=== PATIENT | male | born 1970 | race Caucasian/White ===

== ENCOUNTER 2024-01-20 10:19 | Emergency (ER) | payer OTHER ==
[~2024-01-20] VITALS: Ht 182.9 cm; Wt 84.4 kg
[2024-01-20 12:22] VITALS: BP 118/72; TEMP 98.2; O2SAT 100
== END 2024-01-20 12:23 | disposition home or self-care (01) ==
LOC: ER 10:30
DX: F41.9 Anxiety disorder, unspecified (principal)
CPT/HCPCS: 71045-TC